=== PATIENT | male | born 1940 | race Caucasian/White ===

== ENCOUNTER 2020-10-23 18:38 | Observation (INO) | payer OTHER ==
[~2020-10-23] VITALS: Ht 177.8 cm; Wt 68.0 kg
[~2020-10-23 18:38] MED LIST: ACETAMINOPHEN325 MG PO; BACTROBAN OINT22 GM EXT; CEPHALEXIN500 M1 PO; DORZOLAMIDE-TIM10 ML OD; ELIQUIS 2.5 MG2.5 MG PO; PROBIOTIC FORM1 EACH PO; VITAMIN B-121000 MC3 PO; XALATAN OP SOL2.5 ML OD
[2020-10-23 21:20] LABS: HEMOGLOBIN 13.3 gm/dl (14.0-17.5); RED BLOOD COUNT 4.23 M/UL (4.20-5.50); WHITE BLOOD COUNT 14.5 K/UL (4.5-11.0)
[2020-10-23 21:42] LABS: BUN/CREATININE RATIO 39 (0-10)
[2020-10-24] MEDS ORDERED: LEVOTHYROXINE25 MCG PO (00:16)
[2020-10-24 04:18] LABS: HEMOGLOBIN 11.6 gm/dl (14.0-17.5); WHITE BLOOD COUNT 11.7 K/UL (4.5-11.0)
[2020-10-24 04:25] LABS: RED BLOOD COUNT 3.72 M/UL (4.20-5.50)
[2020-10-24 04:42] LABS: BUN/CREATININE RATIO 33 (0-10)
== END 2020-10-24 15:05 | disposition home or self-care (01) ==
LOC: ER1 18:38 → CDU 23:06
PROVIDERS: Physician Assistant; ADMIT Surgery
DX: S27.2XXA Traumatic hemopneumothorax, initial encounter (principal); S22.42XA Multiple fractures of ribs, left side, initial encounter for closed fracture; S42.032A Displaced fracture of lateral end of left clavicle, initial encounter for closed fracture; E03.9 Hypothyroidism, unspecified; Z98.890 Other specified postprocedural states; Z95.0 Presence of cardiac pacemaker; Z80.0 Family history of malignant neoplasm of digestive organs; Z79.899 Other long term (current) drug therapy; W19.XXXA Unspecified fall, initial encounter
CPT/HCPCS: 36415; 71045; 71101; 73030; 73080; 80048; 80053; 82550; 82553; 83874; 83880; 84484; 85025; 85610; 85730; 90471; 93005; 94760; 96374; 99285; G0378

== ENCOUNTER 2021-10-23 21:07 | Inpatient (IN) | payer OTHER ==
[~2021-10-23] VITALS: Ht 177.8 cm; Wt 68.5 kg
[~2021-10-23 21:07] MED LIST changes: +LEVOTHYROXINE25 MCG PO
[2021-10-23 22:15] LABS: HEMOGLOBIN 12.8 gm/dl (14.0-17.5); RED BLOOD COUNT 4.07 M/UL (4.20-5.50); WHITE BLOOD COUNT 7.9 K/UL (4.5-11.0)
[2021-10-23 23:32] LABS: BUN/CREATININE RATIO 25 (0-10)
[2021-10-24] MEDS ORDERED: VITAMIN B12-FO1 EACH PO (04:25)
[2021-10-24] MEDS ORDERED: VITAMIN D21250 MCG PO (04:26)
--- NOTE | 2021-10-24 11:35 | NUR ---
10/24/21940: PT WENT INTO [facility] ON THE MONITOR AND WAS UNRESPONSIVE. PT DID NOT HAVE A PULSE AND COMPRESSIONS WERE STARTED. (SEE CODE PAPERWORK IN CHART) 10/24/211029: PT LEFT FOR [facility] TO RECIEVE A TEMPORARY PACEMAKER.
[2021-10-25 05:31] LABS: HEMOGLOBIN 12.3 gm/dl (14.0-17.5); RED BLOOD COUNT 3.92 M/UL (4.20-5.50); WHITE BLOOD COUNT 8.1 K/UL (4.5-11.0)
[2021-10-25 05:56] LABS: BUN/CREATININE RATIO 22 (0-10)
[2021-10-26 06:44] LABS: HEMOGLOBIN 12.8 gm/dl (14.0-17.5); RED BLOOD COUNT 4.12 M/UL (4.20-5.50); WHITE BLOOD COUNT 10.5 K/UL (4.5-11.0)
[2021-10-26 07:05] LABS: BUN/CREATININE RATIO 24 (0-10)
[2021-10-27 07:01] LABS: HEMOGLOBIN 13.1 gm/dl (14.0-17.5); RED BLOOD COUNT 4.16 M/UL (4.20-5.50)
[2021-10-27 07:22] LABS: BUN/CREATININE RATIO 22 (0-10)
[2021-10-27] MEDS ORDERED: LEVOFLOXACIN500 MG PO (18:58)
[2021-10-27] MEDS ORDERED: HYDROCODON-ACE1 EAC4 PO (18:58)
[2021-10-27] MEDS ORDERED: CLINDAMYCIN HC300 MG PO (18:58)
[2021-10-28 05:50] LABS: BUN/CREATININE RATIO 30 (0-10)
--- NOTE | 2021-10-28 08:07 | NUR ---
0650 PT SITTING UP IN CHAIR CALLS OUT STATES THAT HE FEELS LIKE HES GOING TO PASS OUT,PT DIAPHORETIC BP LOW, PT ASSISTED BACK TO BED NO C/O VOICED WILL CONTINUE TO MONITOR
[2021-10-28] MEDS ORDERED: ATORVASTATIN CA20 MG PO (09:34)
[2021-10-28] MEDS ORDERED: ASPIRIN EC81 MG PO (09:34)
== END 2021-10-28 16:04 | disposition home health service (06) | DRG 225 ==
LOC: ER1 21:07 → CCU 10-24 01:24 → CDU 10-24 01:24 → CCU 10-24 05:28
PROVIDERS: Emergency Medicine; Internal Medicine; Internal Medicine Cardiovascular Disease; ADMIT Family Medicine
PROC: 5A12012 Performance of Cardiac Output, Single, Manual (ICD-10-PCS; principal; 2021-10-24)
PROC: 4A023N7 Measurement of Cardiac Sampling and Pressure, Left Heart, Percutaneous Approach (ICD-10-PCS; 2021-10-24)
PROC: B24BZZZ Ultrasonography of Heart with Aorta (ICD-10-PCS; 2021-10-24)
PROC: B2111ZZ Fluoroscopy of Multiple Coronary Arteries using Low Osmolar Contrast (ICD-10-PCS; 2021-10-24)
PROC: 5A1223Z Performance of Cardiac Pacing, Continuous (ICD-10-PCS; 2021-10-24)
PROC: 02HV33Z Insertion of Infusion Device into Superior Vena Cava, Percutaneous Approach (ICD-10-PCS; 2021-10-24)
PROC: B548ZZA Ultrasonography of Superior Vena Cava, Guidance (ICD-10-PCS; 2021-10-24)
PROC: 0JH608Z Insertion of Defibrillator Generator into Chest Subcutaneous Tissue and Fascia, Open Approach (ICD-10-PCS; 2021-10-27)
PROC: 02HK3KZ Insertion of Defibrillator Lead into Right Ventricle, Percutaneous Approach (ICD-10-PCS; 2021-10-27)
PROC: 02H60KZ Insertion of Defibrillator Lead into Right Atrium, Open Approach (ICD-10-PCS; 2021-10-27)
PROC: 4A023FZ Measurement of Cardiac Rhythm, Percutaneous Approach (ICD-10-PCS; 2021-10-27)
PROC: 4A0234Z Measurement of Cardiac Electrical Activity, Percutaneous Approach (ICD-10-PCS; 2021-10-27)
DX: I47.2 Ventricular tachycardia (principal); I65.21 Occlusion and stenosis of right carotid artery; Z20.822 Contact with and (suspected) exposure to COVID-19; I46.2 Cardiac arrest due to underlying cardiac condition; I49.5 Sick sinus syndrome; I44.1 Atrioventricular block, second degree; M19.90 Unspecified osteoarthritis, unspecified site; I08.2 Rheumatic disorders of both aortic and tricuspid valves; I45.81 Long QT syndrome; E03.9 Hypothyroidism, unspecified; H40.9 Unspecified glaucoma; I27.20 Pulmonary hypertension, unspecified; I49.01 Ventricular fibrillation; Z86.73 Personal history of transient ischemic attack (TIA), and cerebral infarction without residual deficits; Z91.81 History of falling; Z87.81 Personal history of (healed) traumatic fracture; Z95.0 Presence of cardiac pacemaker; Z82.49 Family history of ischemic heart disease and other diseases of the circulatory system; Z90.49 Acquired absence of other specified parts of digestive tract
CPT/HCPCS: ECHO; 0240U; 33210; 33249; 36415; 70450; 71045; 75822; 80048; 80053; 82550; 82553; 82962; 83605; 83735; 84100; 84439; 84443; 84484; 85025; 85027; 85610; 85730; 93005; 93306; 93620; 96374; 96376; 97116; 97161; 99152; 99153; 99285; C1721; C1730; C1760; C1766; C1769; C1777; C1894; C1898; J0461; J1200; J1265; J1644; J1650; J2250; J3010; J3370; J7030; J7040; J7050; J7070; Q9965; Q9967

== ENCOUNTER 2022-03-09 08:44 | Inpatient (IN) | payer OTHER ==
[~2022-03-09] VITALS: Ht 180.3 cm; Wt 65.8 kg
[~2022-03-09 08:44] MED LIST changes: +ASPIRIN EC81 MG PO; +ATORVASTATIN CA20 MG PO; +CLINDAMYCIN HC300 MG PO; +HYDROCODON-ACE1 EAC4 PO; +LEVOFLOXACIN500 MG PO; +VITAMIN B12-FO1 EACH PO; +VITAMIN D21250 MCG PO
[2022-03-09 09:48] LABS: HEMOGLOBIN 12.5 gm/dl (14.0-17.5); RED BLOOD COUNT 4.26 M/UL (4.20-5.50); WHITE BLOOD COUNT 7.8 K/UL (4.5-11.0)
[2022-03-09 10:23] LABS: BUN/CREATININE RATIO 30 (0-10)
[2022-03-09] MEDS ORDERED: ATORVASTATIN CA20 MG PO (11:30)
[2022-03-10 02:56] LABS: HEMOGLOBIN 10.8 gm/dl (14.0-17.5)
[2022-03-10 03:14] LABS: BUN/CREATININE RATIO 31 (0-10)
[2022-03-10 03:37] LABS: RED BLOOD COUNT 3.64 M/UL (4.20-5.50); WHITE BLOOD COUNT 10.3 K/UL (4.5-11.0)
--- NOTE | 2022-03-10 16:32 | NUR ---
PT TRANSFERRED TO RM [id number] [place] [facility]. PT VERBALIZED AGREEMENT TO THE MOVE.
[2022-03-11] MEDS ORDERED: HYDROCODON-ACE1 EAC6 PO (15:16)
[2022-03-11] MEDS ORDERED: ZOFRAN 4 MG TAB4 MG PO (15:16)
[2022-03-11] MEDS ORDERED: ELIQUIS2.5 MG PO (15:16)
[2022-03-11] MEDS ORDERED: CYCLOBENZAPRINE10 MG PO (15:16)
[2022-03-12 03:13] LABS: HEMOGLOBIN 9.8 gm/dl (14.0-17.5); WHITE BLOOD COUNT 12.7 K/UL (4.5-11.0)
[2022-03-12 03:15] LABS: RED BLOOD COUNT 3.25 M/UL (4.20-5.50)
[2022-03-12 03:34] LABS: BUN/CREATININE RATIO 36 (0-10)
[2022-03-13 02:44] LABS: RED BLOOD COUNT 2.96 M/UL (4.20-5.50)
[2022-03-13 02:46] LABS: WHITE BLOOD COUNT 19.4 K/UL (4.5-11.0)
[2022-03-13 14:07] LABS: HEMOGLOBIN 8.9 gm/dl (14.0-17.5); RED BLOOD COUNT 2.97 M/UL (4.20-5.50); WHITE BLOOD COUNT 19.9 K/UL (4.5-11.0)
[2022-03-13 21:06] LABS: HEMOGLOBIN 7.9 gm/dl (14.0-17.5)
[2022-03-14 04:30] LABS: HEMOGLOBIN 7.3 gm/dl (14.0-17.5); WHITE BLOOD COUNT 16.1 K/UL (4.5-11.0)
[2022-03-14 04:31] LABS: RED BLOOD COUNT 2.48 M/UL (4.20-5.50)
[2022-03-14 04:50] LABS: BUN/CREATININE RATIO 67 (0-10)
[2022-03-14 14:18] LABS: HEMOGLOBIN 5.7 gm/dl (14.0-17.5)
[2022-03-15 02:03] LABS: WHITE BLOOD COUNT 17.2 K/UL (4.5-11.0)
[2022-03-15 02:08] LABS: HEMOGLOBIN 9.3 gm/dl (14.0-17.5); RED BLOOD COUNT 3.15 M/UL (4.20-5.50)
[2022-03-15 02:26] LABS: BUN/CREATININE RATIO 48 (0-10)
[2022-03-15 08:20] LABS: HEMOGLOBIN 10.6 gm/dl (14.0-17.5)
[2022-03-16 04:03] LABS: RED BLOOD COUNT 3.03 M/UL (4.20-5.50)
[2022-03-16 04:16] LABS: BUN/CREATININE RATIO 39 (0-10)
[2022-03-17 05:11] LABS: HEMOGLOBIN 9.2 gm/dl (14.0-17.5); RED BLOOD COUNT 3.06 M/UL (4.20-5.50); WHITE BLOOD COUNT 14.8 K/UL (4.5-11.0)
[2022-03-17 05:30] LABS: BUN/CREATININE RATIO 40 (0-10)
[2022-03-18 04:22] LABS: HEMOGLOBIN 9.6 gm/dl (14.0-17.5); RED BLOOD COUNT 3.2 M/UL (4.20-5.50)
[2022-03-18 04:55] LABS: BUN/CREATININE RATIO 37 (0-10)
[2022-03-18] MEDS ORDERED: DULCOLAX5 MG PO (11:23)
[2022-03-18] MEDS ORDERED: ZOLPIDEM TARTRAT5 MG PO (11:23)
--- NOTE | 2022-03-18 12:56 | NUR ---
03/18/22 1240 REPORT CALLED TO GABRIELLE ABAD [place] AT
== END 2022-03-18 14:20 | DRG 522 ==
LOC: ER1 08:44 → CCU 12:11 → CDU 12:11 → CCU 15:00
PROVIDERS: Internal Medicine; Orthopaedic Surgery; Physician Assistant; ADMIT Family Medicine
PROC: 0SRB0JA Replacement of Left Hip Joint with Synthetic Substitute, Uncemented, Open Approach (ICD-10-PCS; principal; 2022-03-11 13:00)
PROC: 30233N1 Transfusion of Nonautologous Red Blood Cells into Peripheral Vein, Percutaneous Approach (ICD-10-PCS; 2022-03-14)
DX: S72.012A Unspecified intracapsular fracture of left femur, initial encounter for closed fracture (principal); D62 Acute posthemorrhagic anemia; J98.11 Atelectasis; W01.0XXA Fall on same level from slipping, tripping and stumbling without subsequent striking against object, initial encounter; E03.9 Hypothyroidism, unspecified; I49.5 Sick sinus syndrome; H40.9 Unspecified glaucoma; M19.91 Primary osteoarthritis, unspecified site; K21.9 Gastro-esophageal reflux disease without esophagitis; E78.5 Hyperlipidemia, unspecified; I10 Essential (primary) hypertension; I48.0 Paroxysmal atrial fibrillation; I25.10 Atherosclerotic heart disease of native coronary artery without angina pectoris; Z86.73 Personal history of transient ischemic attack (TIA), and cerebral infarction without residual deficits; Z90.49 Acquired absence of other specified parts of digestive tract; Z98.41 Cataract extraction status, right eye; Z98.42 Cataract extraction status, left eye; Z98.890 Other specified postprocedural states; Z95.0 Presence of cardiac pacemaker; Z83.6 Family history of other diseases of the respiratory system; Z79.82 Long term (current) use of aspirin; Z79.899 Other long term (current) drug therapy; Z79.01 Long term (current) use of anticoagulants
CPT/HCPCS: 0241U; 36415; 36430; 51702; 71045; 72170; 73502; 73552; 76000; 80048; 80053; 81001; 82550; 82553; 82607; 82728; 82746; 82962; 83540; 83550; 83605; 83735; 83880; 84484; 85014; 85018; 85025; 85027; 85045; 86140; 86850; 86900; 86901; 86920; 87040; 87070; 87081; 87086; 87205; 93005; 97116-GP-CQ; 97162; 97165; 97530; 97530-GP-CQ; 99284; C1776; J0690; J1756; J1885; J1956; J2250; J2270; J2370; J2405; J2704; J2795; J3010; J3370; J7030; J7050; P9016